=== PATIENT | female | born 1990 | race Caucasian/White ===

== ENCOUNTER 2017-06-04 10:19 | Emergency (ER) | payer OTHER ==
[~2017-06-04 10:19] MED LIST: OXYCODONE/ACETA1 TA1 PO
--- NOTE | 2017-06-04 13:08 | DIAGNOSTIC IMAGING REPORT ---
PROCEDURE: US OB 1ST TRIMESTER W/TRANSVAG INDICATION: ABNORMAL BLEEDING TECHNIQUE: Kwok scale, color, and spectral Doppler transabdominal and endovaginal sonographic images of the first trimester gravid uterus were obtained. COMPARISON: None. FINDINGS: TRANSABDOMINAL SCANS: Anteverted anteflexed uterus contains a fundal gestational sac with a small decidual response. Maternal adnexa are unremarkable. TRANSVAGINAL SCANS: The intrauterine gestational sac contains a pole and yolk sac. pole measures 6 mm, however there is no detectable cardiac activity. The yolk sac is visible. Hyperechoic material surrounds the gestational sac completely, extends into the lower uterine segment and through the endocervix. Right ovary measures 3.4 x 2.1 x 1.9 cm and contains an appears to be an oblong corpus luteum measuring about 10 mm. The left ovary measures about 2.4 cm and has a normal appearance. Trace amount of free fluid is present in the cul-de- sac. IMPRESSION: 1. There is an intrauterine pole measuring 6 mm without detectable cardiac activity. This would correspond to a 6-yvlu-8-day gestation, 6 days behind the expected gestational age of 7 weeks 2 days. At this size, cardiac activity should have been detected and this likely represents demise/spontaneous . 2. Probable involuting right ovarian corpus luteum. 3. Continued follow-up Beta hCG levels recommended.
--- NOTE | 2017-06-04 13:34 | ED CLINICAL REPORT ---
Clinical Report - Physicians/Mid Levels [facility] [address] [place] [address] 06/04/2017 10:20 Patient: DINORAH LAGUNA Time Seen: 10:58. Arrived- By private vehicle. Historian- patient. HISTORY OF PRESENT ILLNESS Chief Complaint: VAGINAL BLEEDING. This started just prior to arrival. She has had pelvic pain (cramping mildly). She has had vaginal bleeding (patient states that when she urinated this morning, she noticed a spot of red blood on the toilet paper. Patient states that the next 2 times she urinated she did not have any blood, but that she checked her vagina with her finger and found that there was brownish discharge inside. This was not leaking onto her underwear.). Is still present but is better now. No contractions. Last normal menstrual period was 7 weeks ago. (Patient denies any other problems with the . She had 4 positive tests at home, and estimates she is about 7 weeks along.). Similar symptoms previously: ( Patient states she had a miscarriage at 7 weeks with her first . Her second , she carried to term and gave to a healthy baby.). Recent medical care: Not recently seen/assessed. REVIEW OF SYSTEMS The patient has had nausea. No vomiting, diarrhea, black stools, bloody stools or headache. No double vision, fainting episodes, fever, eye discomfort or eye discharge. No sore throat, cough, difficulty breathing, chest pain or skin rash. No enlarged lymph nodes, chills or joint pain. All systems otherwise negative, except as recorded above. PAST HISTORY Problems: Spontaneous (Miscarriage). OB History. Additional Surgeries: no known surgeries. Medications: None. Allergies: Sulfa Antibiotics.(vomiting). SOCIAL HISTORY Never smoker. No alcohol use or drug use. ADDITIONAL NOTES The nursing notes have been reviewed. PHYSICAL EXAM Vital Signs: 06/04/2017 10:30 BP: 134/72. HR: 110. RR: 20. O2 saturation: 100%. Temp: 100 F. Pain level now: 0/10. Appearance: Alert. Oriented X3. No acute distress. HEENT: Normal external inspection. Neck: Neck supple. CVS: Heart sounds normal. Respiratory: No respiratory distress. Breath sounds normal. Abdomen: Soft and nontender. Back: Normal external inspection. No CVA tenderness. Pelvic: Speculum and bimanual exam performed. Normal external exam. Skin: Skin warm and dry. Normal skin color. No rash. Normal skin turgor. Extremities: Extremities nontender. No pathologic edema. Neuro: Oriented X 3. Mood/affect normal. No motor deficit. No sensory deficit. LABS, X-RAYS, AND EKG Pelvic Sonogram: demise (6 week size) is present. Adnexa normal. No free fluid. Study type: bedside transvaginal and obstetrical evaluation. The study was interpreted by the radiologist and discussed with the radiologist. Prior studies were not available for comparison. Laboratory Tests: Serum Quantitative: (FALGUNI: 06/04/2017 11:30) ( FlgRcvd 06/04/2017 12:17) Final results Test Result Flag Units (Reference) BETA HCG, QUANTITATIVE 2173 mIU/mL REFERENCE RANGE:Adult Males: <2 mIU/mLNon- Females: <6 mIU/mL Females:Approximate Approximate hCGGestational Age Range (mIU/mL) 0-1 week 0-501-2 weeks 40-3002-3 weeks 100-15469-4 weeks 500-72863-2 months 5,000-200,0002-3 months 10,000-100,0002nd trimester 3,000-50,0003rd trimester 1,000-50,000 Type & Rh: (FALGUNI: 06/04/2017 11:30) ( MsgRcvd 06/04/2017 12:46) Final results Test Result Flag Units (Reference) PATIENT BLOOD TYPE A Positive . Pulse Oximetry: 06/04/2017 10:30 O2 saturation: 100%. (FIO2 - room air). Interpretation: normal. PROGRESS AND PROCEDURES Course of Care: patient was worked up for his symptoms, and I did inform her of her intrauterine demise. I have referred her for follow-up with [facility], and have discussed the options of allowing the miscarriage to proceed on its own versus a D&C or medication assisted miscarriage. The patient at this point in time would like to wait and see if the miscarriage proceeds and complete on its own. Patient and spouse counseled in person regarding the patient's stable condition, test results, diagnosis and need for follow-up. Concerns were addressed. Old medical records reviewed. Disposition: Discharged. Condition: stable. CLINICAL IMPRESSION Incomplete spontaneous (miscarriage).No complications. demise, less than 20 weeks gestation. INSTRUCTIONS Do not work for three days. Drink plenty of fluids. Warnings: Further evaluation is necessary. It is very important to follow up with a physician. GENERAL WARNINGS: Return or contact your physician immediately if your condition worsens or changes unexpectedly, if not improving as expected, or if other problems arise. Follow-up: Follow up with doctor [facility] P: . Call for the next available appointment. Reason for referral: Follow up demise. Understanding of the discharge instructions verbalized by patient and family. (Electronically signed by Flaca Mares MD 06/04/2017 22:48)
--- NOTE | 2017-06-04 13:34 | ED NURSING NOTES ---
Clinical Report - Nurses [facility] [address] [place] [address] 06/04/2017 10:20 Patient: DINORAH LAGUNA TRIAGE Triage time 1030. Acuity: LEVEL 3. Chief Complaint: SPOTTING. 10:30. --10:46 Mouna Correia R.N. 10:30 06/04/17. BP: 134/72. HR: 110. RR: 20. O2 saturation: 100%. Temp: 100 F. Pain level now: 0. --10:46 Mouna Correia R.N. Weight: 75.2 kg stated. Height/Length: 65 inches Per Patient. BMI: 27.6. --10:43 Mouna Correia R.N. Medications None. --10:46 Mouna Correia R.N. Allergies Sulfa Antibiotics.(vomiting) --10:45 Mouna Correia R.N. History Arrived by private vehicle. Historian: patient. Accompanied by spouse. Primary physician (OB =Sukhdev (doesn't want Gran)). No primary care physician. Onset. (0945). ( Pt in after starting to have some spotting this morning. states she "hasn't been feeling good" for a couple of days, and has had increased nausea). No vomiting. PAST MEDICAL HX: Last normal menstrual period- 7 weeks preg. OB history: G 3; P 1; Ab 1 (1 SAB at 7 weeks). ( heart arrhythmia). SURGERY HX: No history of previous surgery. SOCIAL HX: Never smoker. No alcohol use or drug use. --10:46 Mouna Correia R.N. Interventions ID band on patient. To treatment room. --10:46 Mouna Correia R.N. PHYSICAL ASSESSMENT 10:30. Ambulatory to room. Patient gowned. GENERAL / NEURO / PSYCH: Alert. Oriented X 4. Appears anxious. RESPIRATORY: Respirations not labored. CVS: Capillary refill less than 2 seconds. SKIN: Skin is warm and dry. --10:48 Mouna Correia R.N. NURSING PROGRESS NOTES 10:30. Patient gowned. Head of bed elevated. Reassurance given. Patient identifiers checked. Call light placed in reach. Side rails up. Bed placed in lowest position. Patient ready for evaluation- chart flagged. --10:47 Mouna Correia R.N. 10:37 06/04/2017 Zofran ODT (Ondansetron) PO Oral Disintegrating Tablets 4 mg given. Allergies verified and confirmed 5 rights. --10:47 Mouna Correia R.N. 10:38. ( pt c/o nausea, given meds.). --10:48 Mouna Correia R.N. 11:30. Patient ID band checked for patient name and birthdate: patient confirmed. Blood samples drawn by lab per protocol ; labeled in presence of the patient and sent to lab: [employer] set. --12:08 Mouna Correia R.N. 11:58 US at bedside in room doing exam. --12:08 Mouna Correia R.N. 12:10. Patient ID band checked for patient name and birthdate: patient confirmed. Clean catch urine collected with return of yellow-colored clear urine. Specimen labeled in the presence of the patient. --13:07 Mouna Correia R.N. 12:10 06/04/17. BP: 116/58. HR: 90. RR: 18. O2 saturation: 100%. Temp: deferred. Pain level now: 0/10. --13:08 Mouna Correia R.N. 12:50 ERMD in to talk with pt about findings and options for follow up. --13:08 Mouna Correia R.N. DISPOSITION / DISCHARGE 13:35. Condition at departure: stable. No learning barriers present. Discharge instructions provided and reviewed with the patient and spouse. Reviewed medication(s) (prov orthopedic). Patient and spouse verbalized understanding. Written instructions provided in Albanian. The patient was discharged home and accompanied by spouse. She left the Emergency Department ambulatory and via private vehicle. Spouse driving. --14:46 Mouna Correia R.N. 13:35 06/04/17. BP: 110/60. HR: 94. RR: 18. O2 saturation: 100%. Temp: 98.8 F. Pain level now: 010. --14:46 Mouna Correia R.N. Locked/Released at 06/04/2017 14:47 by Mouna Correia R.N.
--- NOTE | 2017-06-04 13:34 | ED ORDER SUMMARY ---
..... Patient: DINORAH LAGUNA OrderSheet [facility] VisitID: [id number] [address] [place] [address] 26y, F Registration Date/Time: 06/04/2017 ORDER SHEET Weight: 75.2 kg (stated) Allergies: Sulfa Antibiotics GENERAL ORDERS: US OB 1st Trimester w Transvag (7 wks ago) Urgent (11:06/04/2017 Autumn TALAMANTES) (Ack 11:27 PWeiler ER Tech1) (12:36 DDean R.N.) Serum Quantitative Urgent (11:06/04/2017 Autumn TALAMANTES) (Ack 11:25 PWeigavi ER Tech1) (12:08 DDean R.N.) Type & Rh Urgent (11:06/04/2017 Autumn TALAMANTES) (Ack 11:25 PWeiler ER Tech1) (12:08 DDean R.N.) MEDICATION ORDERS: Zofran ODT PO 4 mg (NOW) (10:47 06/04/2017 DDean R.N. per protocol) (10:47 DDean R.N.) IV FLUIDS: ORDER SHEET NOTES: [Electronically signed by Mouna Correia R.N. (14:47 06/04/2017)] [Electronically signed by Flaca Mares MD (22:48 06/04/2017)] [Electronically locked/signed by Mouna Correia R.N. (14:47 06/04/2017)]
--- NOTE | 2017-06-04 13:34 | ED ORDER SUMMARY ---
..... Patient: DINORAH LAGUNA OrderSheet [facility] VisitID: [id number] [address] [place] [address] 26y, F Registration Date/Time: 06/04/2017 ORDER SHEET Weight: 75.2 kg (stated) Allergies: Sulfa Antibiotics GENERAL ORDERS: US OB 1st Trimester w Transvag (7 wks ago) Urgent (11:06/04/2017 Autumn TALAMANTES) (Ack 11:27 PWeiler ER Tech1) (12:36 DDean R.N.) Serum Quantitative Urgent (11:06/04/2017 Autumn TALAMANTES) (Ack 11:25 PWeigavi ER Tech1) (12:08 DDean R.N.) Type & Rh Urgent (11:06/04/2017 Autumn TALAMANTES) (Ack 11:25 PWeiler ER Tech1) (12:08 DDean R.N.) MEDICATION ORDERS: Zofran ODT PO 4 mg (NOW) (10:47 06/04/2017 DDean R.N. per protocol) (10:47 DDean R.N.) IV FLUIDS: ORDER SHEET NOTES: [Electronically signed by Mouna Correia R.N. (14:47 06/04/2017)] [Electronically signed by Flaca Mares MD (22:48 06/04/2017)] [Electronically locked/signed by Mouna Correia R.N. (14:47 06/04/2017)]
--- NOTE | 2017-06-04 13:34 | ED NURSING NOTES ---
Clinical Report - Nurses [facility] [address] [place] [address] 06/04/2017 10:20 Patient: DINORAH LAGUNA TRIAGE Triage time 1030. Acuity: LEVEL 3. Chief Complaint: SPOTTING. 10:30. --10:46 Mouna Correia R.N. 10:30 06/04/17. BP: 134/72. HR: 110. RR: 20. O2 saturation: 100%. Temp: 100 F. Pain level now: 0. --10:46 Mouna Correia R.N. Weight: 75.2 kg stated. Height/Length: 65 inches Per Patient. BMI: 27.6. --10:43 Mouna Correia R.N. Medications None. --10:46 Mouna Correia R.N. Allergies Sulfa Antibiotics.(vomiting) --10:45 Mouna Correia R.N. History Arrived by private vehicle. Historian: patient. Accompanied by spouse. Primary physician (OB =Sukhdev (doesn't want Gran)). No primary care physician. Onset. (0945). ( Pt in after starting to have some spotting this morning. states she "hasn't been feeling good" for a couple of days, and has had increased nausea). No vomiting. PAST MEDICAL HX: Last normal menstrual period- 7 weeks preg. OB history: G 3; P 1; Ab 1 (1 SAB at 7 weeks). ( heart arrhythmia). SURGERY HX: No history of previous surgery. SOCIAL HX: Never smoker. No alcohol use or drug use. --10:46 Mouna Correia R.N. Interventions ID band on patient. To treatment room. --10:46 Mouna Correia R.N. PHYSICAL ASSESSMENT 10:30. Ambulatory to room. Patient gowned. GENERAL / NEURO / PSYCH: Alert. Oriented X 4. Appears anxious. RESPIRATORY: Respirations not labored. CVS: Capillary refill less than 2 seconds. SKIN: Skin is warm and dry. --10:48 Mouna Correia R.N. NURSING PROGRESS NOTES 10:30. Patient gowned. Head of bed elevated. Reassurance given. Patient identifiers checked. Call light placed in reach. Side rails up. Bed placed in lowest position. Patient ready for evaluation- chart flagged. --10:47 Mouna Correia R.N. 10:37 06/04/2017 Zofran ODT (Ondansetron) PO Oral Disintegrating Tablets 4 mg given. Allergies verified and confirmed 5 rights. --10:47 Mouna Correia R.N. 10:38. ( pt c/o nausea, given meds.). --10:48 Mouna Correia R.N. 11:30. Patient ID band checked for patient name and birthdate: patient confirmed. Blood samples drawn by lab per protocol ; labeled in presence of the patient and sent to lab: [employer] set. --12:08 Mouna Correia R.N. 11:58 US at bedside in room doing exam. --12:08 Mouna Correia R.N. 12:10. Patient ID band checked for patient name and birthdate: patient confirmed. Clean catch urine collected with return of yellow-colored clear urine. Specimen labeled in the presence of the patient. --13:07 Mouna Correia R.N. 12:10 06/04/17. BP: 116/58. HR: 90. RR: 18. O2 saturation: 100%. Temp: deferred. Pain level now: 0/10. --13:08 Mouna Correia R.N. 12:50 ERMD in to talk with pt about findings and options for follow up. --13:08 Mouna Correia R.N. DISPOSITION / DISCHARGE 13:35. Condition at departure: stable. No learning barriers present. Discharge instructions provided and reviewed with the patient and spouse. Reviewed medication(s) (prov orthopedic). Patient and spouse verbalized understanding. Written instructions provided in Persian. The patient was discharged home and accompanied by spouse. She left the Emergency Department ambulatory and via private vehicle. Spouse driving. --14:46 Mouna Correia R.N. 13:35 06/04/17. BP: 110/60. HR: 94. RR: 18. O2 saturation: 100%. Temp: 98.8 F. Pain level now: 010. --14:46 Mouna Correia R.N. Locked/Released at 06/04/2017 14:47 by Mouna Correia R.N.
--- NOTE | 2017-06-04 13:34 | ED CLINICAL REPORT ---
Clinical Report - Physicians/Mid Levels [facility] [address] [place] [address] 06/04/2017 10:20 Patient: DINORAH LAGUNA Time Seen: 10:58. Arrived- By private vehicle. Historian- patient. HISTORY OF PRESENT ILLNESS Chief Complaint: VAGINAL BLEEDING. This started just prior to arrival. She has had pelvic pain (cramping mildly). She has had vaginal bleeding (patient states that when she urinated this morning, she noticed a spot of red blood on the toilet paper. Patient states that the next 2 times she urinated she did not have any blood, but that she checked her vagina with her finger and found that there was brownish discharge inside. This was not leaking onto her underwear.). Is still present but is better now. No contractions. Last normal menstrual period was 7 weeks ago. (Patient denies any other problems with the . She had 4 positive tests at home, and estimates she is about 7 weeks along.). Similar symptoms previously: ( Patient states she had a miscarriage at 7 weeks with her first . Her second , she carried to term and gave to a healthy baby.). Recent medical care: Not recently seen/assessed. REVIEW OF SYSTEMS The patient has had nausea. No vomiting, diarrhea, black stools, bloody stools or headache. No double vision, fainting episodes, fever, eye discomfort or eye discharge. No sore throat, cough, difficulty breathing, chest pain or skin rash. No enlarged lymph nodes, chills or joint pain. All systems otherwise negative, except as recorded above. PAST HISTORY Problems: Spontaneous (Miscarriage). OB History. Additional Surgeries: no known surgeries. Medications: None. Allergies: Sulfa Antibiotics.(vomiting). SOCIAL HISTORY Never smoker. No alcohol use or drug use. ADDITIONAL NOTES The nursing notes have been reviewed. PHYSICAL EXAM Vital Signs: 06/04/2017 10:30 BP: 134/72. HR: 110. RR: 20. O2 saturation: 100%. Temp: 100 F. Pain level now: 0/10. Appearance: Alert. Oriented X3. No acute distress. HEENT: Normal external inspection. Neck: Neck supple. CVS: Heart sounds normal. Respiratory: No respiratory distress. Breath sounds normal. Abdomen: Soft and nontender. Back: Normal external inspection. No CVA tenderness. Pelvic: Speculum and bimanual exam performed. Normal external exam. Skin: Skin warm and dry. Normal skin color. No rash. Normal skin turgor. Extremities: Extremities nontender. No pathologic edema. Neuro: Oriented X 3. Mood/affect normal. No motor deficit. No sensory deficit. LABS, X-RAYS, AND EKG Pelvic Sonogram: demise (6 week size) is present. Adnexa normal. No free fluid. Study type: bedside transvaginal and obstetrical evaluation. The study was interpreted by the radiologist and discussed with the radiologist. Prior studies were not available for comparison. Laboratory Tests: Serum Quantitative: (FALGUNI: 06/04/2017 11:30) ( WvgRcvd 06/04/2017 12:17) Final results Test Result Flag Units (Reference) BETA HCG, QUANTITATIVE 2173 mIU/mL REFERENCE RANGE:Adult Males: <2 mIU/mLNon- Females: <6 mIU/mL Females:Approximate Approximate hCGGestational Age Range (mIU/mL) 0-1 week 0-501-2 weeks 40-3002-3 weeks 100-33106-6 weeks 500-40601-1 months 5,000-200,0002-3 months 10,000-100,0002nd trimester 3,000-50,0003rd trimester 1,000-50,000 Type & Rh: (FALGUNI: 06/04/2017 11:30) ( MsgRcvd 06/04/2017 12:46) Final results Test Result Flag Units (Reference) PATIENT BLOOD TYPE A Positive . Pulse Oximetry: 06/04/2017 10:30 O2 saturation: 100%. (FIO2 - room air). Interpretation: normal. PROGRESS AND PROCEDURES Course of Care: patient was worked up for his symptoms, and I did inform her of her intrauterine demise. I have referred her for follow-up with [place] [facility], and have discussed the options of allowing the miscarriage to proceed on its own versus a D&C or medication assisted miscarriage. The patient at this point in time would like to wait and see if the miscarriage proceeds and complete on its own. Patient and spouse counseled in person regarding the patient's stable condition, test results, diagnosis and need for follow-up. Concerns were addressed. Old medical records reviewed. Disposition: Discharged. Condition: stable. CLINICAL IMPRESSION Incomplete spontaneous (miscarriage).No complications. demise, less than 20 weeks gestation. INSTRUCTIONS Do not work for three days. Drink plenty of fluids. Warnings: Further evaluation is necessary. It is very important to follow up with a physician. GENERAL WARNINGS: Return or contact your physician immediately if your condition worsens or changes unexpectedly, if not improving as expected, or if other problems arise. Follow-up: Follow up with doctor [facility] P: . Call for the next available appointment. Reason for referral: Follow up demise. Understanding of the discharge instructions verbalized by patient and family. (Electronically signed by Flaca Mares MD 06/04/2017 22:48)
--- NOTE | 2017-06-04 22:48 | ED DISCHARGE INSTRUCTIONS ---
Patient: DINORAH LAGUNA General Instructions [facility] VisitID: [id number] [place] [address] 26y, F Registration Date/Time: 06/04/2017 Incomplete spontaneous (miscarriage).No complications. demise, less than 20 weeks gestation. INSTRUCTIONS Do not work for three days. Drink plenty of fluids. Warnings: Further evaluation is necessary. It is very important to follow up with a physician. GENERAL WARNINGS: Return or contact your physician immediately if your condition worsens or changes unexpectedly, if not improving as expected, or if other problems arise. Follow-up: Follow up with doctor [facility] P: . Call for the next available appointment. Reason for referral: Follow up demise. Understanding of the discharge instructions verbalized by patient and family. ADDITIONAL INFORMATION Miscarriage, Spontaneous (Completed) Todays exam shows that your has ended suddenly. While this may be an emotionally difficult time for you, know that it is not an uncommon event. A miscarriage can be due to various causes. These include a problem with the babys chromosomes (genes that carry the information needed for life) or with fertilization or implantation that didnt happen correctly. In most cases no cause can be found. Be assured that this miscarriage was not the result of anything that you did wrong, and it will not interfere with your ability to become in the future. It appears that your miscarriage is complete and all tissue from the has passed. If there are parts of the tissue that remain in the uterus, you will probably have more cramping and bleeding. Home Care: You may resume normal activities if you are not having heavy bleeding or pain. Until the bleeding stops completely and to prevent infection: Do not have sexual intercourse for as long as your healthcare provider tells you. Use sanitary pads instead of tampons. Do not douche. If you feel sadness or grief, it may help to talk about your feelings with family and friends, or with a counselor. Follow Up: Make an appointment to see your doctor in the next one to two weeks for a checkup. If cramping and bleeding return and continue for more than a few days, call your doctor or return here for an exam. The doctor may need to remove remaining tissue from the uterus to stop the bleeding and prevent infection. Or, you may be prescribed medication to take at home to help your body expel the remaining tissue. Note: If you had an ultrasound it will be reviewed by a specialist. You will be notified of any new findings that may affect your care. Get Prompt Medical Attention if any of the following occur: Heavy bleeding (soaking one new pad an hour over three hours) Bleeding that does not stop after ten days Foul-smelling vaginal discharge Fever of 100.4F (38C) or higher, or as directed by your healthcare provider Increasing lower abdominal pain Weakness, dizziness, or fainting You have been given the following additional information: Miscarriage, Spontaneous (Completed) Do not work for three days. (Electronically signed by Flaca Mares MD 06/04/2017 22:48)
--- NOTE | 2017-06-04 22:48 | ED DISCHARGE INSTRUCTIONS ---
Patient: DINORAH LAGUNA General Instructions [facility] VisitID: [id number] [place] [address] 26y, F Registration Date/Time: 06/04/2017 Incomplete spontaneous (miscarriage).No complications. demise, less than 20 weeks gestation. INSTRUCTIONS Do not work for three days. Drink plenty of fluids. Warnings: Further evaluation is necessary. It is very important to follow up with a physician. GENERAL WARNINGS: Return or contact your physician immediately if your condition worsens or changes unexpectedly, if not improving as expected, or if other problems arise. Follow-up: Follow up with doctor [facility] P: . Call for the next available appointment. Reason for referral: Follow up demise. Understanding of the discharge instructions verbalized by patient and family. ADDITIONAL INFORMATION Miscarriage, Spontaneous (Completed) Todays exam shows that your has ended suddenly. While this may be an emotionally difficult time for you, know that it is not an uncommon event. A miscarriage can be due to various causes. These include a problem with the babys chromosomes (genes that carry the information needed for life) or with fertilization or implantation that didnt happen correctly. In most cases no cause can be found. Be assured that this miscarriage was not the result of anything that you did wrong, and it will not interfere with your ability to become in the future. It appears that your miscarriage is complete and all tissue from the has passed. If there are parts of the tissue that remain in the uterus, you will probably have more cramping and bleeding. Home Care: You may resume normal activities if you are not having heavy bleeding or pain. Until the bleeding stops completely and to prevent infection: Do not have sexual intercourse for as long as your healthcare provider tells you. Use sanitary pads instead of tampons. Do not douche. If you feel sadness or grief, it may help to talk about your feelings with family and friends, or with a counselor. Follow Up: Make an appointment to see your doctor in the next one to two weeks for a checkup. If cramping and bleeding return and continue for more than a few days, call your doctor or return here for an exam. The doctor may need to remove remaining tissue from the uterus to stop the bleeding and prevent infection. Or, you may be prescribed medication to take at home to help your body expel the remaining tissue. Note: If you had an ultrasound it will be reviewed by a specialist. You will be notified of any new findings that may affect your care. Get Prompt Medical Attention if any of the following occur: Heavy bleeding (soaking one new pad an hour over three hours) Bleeding that does not stop after ten days Foul-smelling vaginal discharge Fever of 100.4F (38C) or higher, or as directed by your healthcare provider Increasing lower abdominal pain Weakness, dizziness, or fainting You have been given the following additional information: Miscarriage, Spontaneous (Completed) Do not work for three days. (Electronically signed by Flaca Mares MD 06/04/2017 22:48)
--- NOTE | 2017-06-04 22:49 | ED MED RECONCILIATION SUMMARY ---
Patient: DINORAH LAGUNA Medication Reconciliation Report [facility] VisitID: [id number] [address] [place] [address] 26y, F Registration Date/Time: 06/04/2017 Weight: 75.2 kg Height/Length: 65 in. BMI: 27.6 ALLERGIES: Sulfa Antibiotics The patient's Home Medications are listed below: NONE. The source(s) of the original Home Medication information: Not obtained. The following Medications were given to the patient in the Emergency Department: Zofran ODT [PO] PO 4 mg, administered: 06/04/2017 10:37:00 AM The following Medications were prescribed to the patient: None.
--- NOTE | 2017-06-04 22:49 | ED MED RECONCILIATION SUMMARY ---
Patient: DINORAH LAGUNA Medication Reconciliation Report [facility] VisitID: [id number] [address] [place] [address] 26y, F Registration Date/Time: 06/04/2017 Weight: 75.2 kg Height/Length: 65 in. BMI: 27.6 ALLERGIES: Sulfa Antibiotics The patient's Home Medications are listed below: NONE. The source(s) of the original Home Medication information: Not obtained. The following Medications were given to the patient in the Emergency Department: Zofran ODT [PO] PO 4 mg, administered: 06/04/2017 10:37:00 AM The following Medications were prescribed to the patient: None.
--- NOTE | 2017-06-04 22:49 | ED MAR SUMMARY ---
..... Medication Administration Record [facility] [address] [place] [address] Patient: DINORAH LAGUNA Visit ID: [id number] 26y, F Weight: 75.2 kg Height/Length: 65 in BMI: 27.6 ALLERGIES: Sulfa Antibiotics Given 10:37 06/04/2017 MasoodMouna R.N. Medication Administered: ZOFRAN ODT [PO] (ONDANSETRON), Dose: 4 mg Oral Disintegrating Tablets PO. Medication Ordered: Zofran ODT PO 4 mg (NOW).
--- NOTE | 2017-06-04 22:49 | ED MAR SUMMARY ---
..... Medication Administration Record [facility] [address] [place] [address] Patient: DINORAH LAGUNA Visit ID: [id number] 26y, F Weight: 75.2 kg Height/Length: 65 in BMI: 27.6 ALLERGIES: Sulfa Antibiotics Given 10:37 06/04/2017 MasoodMouna R.N. Medication Administered: ZOFRAN ODT [PO] (ONDANSETRON), Dose: 4 mg Oral Disintegrating Tablets PO. Medication Ordered: Zofran ODT PO 4 mg (NOW).
== END 2017-06-04 13:35 | disposition home or self-care (01) ==
LOC: ED SRH 10:19
DX: O03.4 Incomplete spontaneous abortion without complication (principal); Z3A.01 Less than 8 weeks gestation of pregnancy; O36.4XX1 Maternal care for intrauterine death, fetus 1; Z88.2 Allergy status to sulfonamides; Z87.59 Personal history of other complications of pregnancy, childbirth and the puerperium
CPT/HCPCS: 90001; 90074; 90155; 90197